=== PATIENT | male | born 1985 | race Caucasian/White ===

== ENCOUNTER 2017-11-12 19:41 | Emergency (ER) | payer OTHER ==
[2017-11-12] MEDS: DIPHENHYDRAMINE 50 MG INJ IM (20:14)
[2017-11-12] MEDS: DEXAMETHASONE 10 MG/ML 1 ML INJ IM (20:14)
[2017-11-12] MEDS: FAMOTIDINE 20 MG TAB PO (20:14)
[2017-11-12] MEDS: IBUPROFEN 600 MG TAB PO (20:20)
== END 2017-11-12 21:06 | disposition home or self-care (01) ==
LOC: FTE 19:41
DX: L50.0 Allergic urticaria (principal)
CPT/HCPCS: 96372; 99284-25

== ENCOUNTER 2017-11-15 18:42 | Emergency (ER) | payer OTHER | END 2017-11-15 20:40 | disposition home or self-care (01) | LOC: FTE 18:42 | DX: R21 Rash and other nonspecific skin eruption (principal); R20.9 Unspecified disturbances of skin sensation; F17.210 Nicotine dependence, cigarettes, uncomplicated | CPT/HCPCS: 99283; Z7502 ==